=== PATIENT | female | born 1930 | race Caucasian/White ===

== ENCOUNTER 2018-12-04 14:16 | Emergency (ER) | payer MEDICARE, BC ==
--- NOTE | 2018-12-04 14:46 | EDM.PDOC ---
ED HPI GENERAL MEDICAL PROBLEM - General Stated Complaint: FELL AND HIT HER FACE Time Seen by Provider: 12/04/18 14:22 Source of Information: Reports: Patient History Limitations: Reports: No Limitations - History of Present Illness INITIAL COMMENTS - FREE TEXT/NARRATIVE: HPI: This 88 yo female patient reports to the ED from the [facility] due to a ground level fall. The patient had just finished her clinic appointment and was getting ready to leave when she fell and hit her head. The patient does not recall the events of the fall. The patient reports some pain over the right forehead, but denies any additional areas of injury. Primary Survey Airway: open and patient Breathing: regular without additional effort Circulation: no major bleeding noted Deformity: no deformity noted Expose: as appropriate GCS: 15 Secondary Survey HEENT Head: contusion to the right forehead, small laceration to the right upper eyelid with no profuse bleeding Eyes: PERRLA Ears: no obvious trauma, canals open Nose: no deformity, no bleeding, mucosa moist Mouth: no noted trauma Throat: no abnormalities noted Neck: Subtle, normal range of motion no cervical tenderness Chest: lung sounds were clear and equal bilaterally, Heart was RRR, no murmurs, rubs or gallop Abdomen: normoactive bowel sounds, no organomegally, no tenderness on palpation Pelvis: stable Extremities: CMS intact Provider Trauma Notes Arrival Time: 1421 GCS on Arrival: 15 C-collar present on arrival: no GCS at 1 hour: Off spine board: NA Time primary survey: 1423 Time secondary survey: 1425 Time C-collar cleared: NA By: Time removed: GCS on discharge: Onset: Today Duration: Minutes: Location: Reports: Head (right forehead contusion), Face (right upper eyelid laceration) Quality: Reports: Ache, Dull Severity: Moderate Improves with: Reports: None Worsens with: Reports: None Context: Reports: Trauma (Ground level fall) Associated Symptoms: Reports: No Other Symptoms Review of Systems - Review of Systems Review Of Systems: ROS reveals no pertinent complaints other than HPI. ED EXAM, GENERAL - Physical Exam Exam: See Below Exam Limited By: No Limitations General Appearance: Alert, WD/WN, No Apparent Distress Eye Exam: Right Eye: Other (Laceration to right upper eyelid), Bilateral Eye: EOMI, PERRL Ears: Normal External Exam, Normal Canal, Hearing Grossly Normal, Normal TMs Nose: Normal Inspection, Normal Mucosa, No Blood Throat/Mouth: Normal Inspection, Normal Lips, Normal Teeth, Normal Gums, Normal Oropharynx, Normal Voice, No Airway Compromise Head: Other (contusion to the right forehead 4 cm x 3 cm) Neck: Normal Inspection, Supple, Non-Tender Respiratory/Chest: No Respiratory Distress, Lungs Clear, Normal Breath Sounds, No Accessory Muscle Use, Chest Non-Tender Cardiovascular: Irregularly Irregular GI/Abdominal: Normal Bowel Sounds, Soft, Non-Tender, No Organomegaly, No Distention, No Abnormal Bruit, No Mass (Female) Exam: Deferred Rectal (Female) Exam: Deferred Back Exam: Normal Inspection, Full Range of Motion, NT Extremities: Normal Inspection, Normal Range of Motion, Non-Tender, Normal Capillary Refill, No Pedal Edema Neurological: Alert, Oriented, CN II-XII Intact, Normal Cognition Psychiatric: Normal Affect, Normal Mood Skin Exam: Wound/Incision (right upper eyelid) Lymphatic: No Adenopathy Course - Orders/Labs/Meds Orders: Active Orders 24 hr Category Date Time Status Cervical Spine wo Cont [CT] Urgent Exams 12/04/18 14:29 Ordered Head wo Cont [CT] Urgent Exams 12/04/18 14:29 Ordered COMPREHENSIVE METABOLIC PN,CMP [CHEM] Urgent Lab 12/04/18 14:29 Ordered INR,PT,PROTHROMBIN TIME [COAG] Stat Lab 12/04/18 14:29 Ordered UA RFX NERISSA AND CULT IF INDIC [URIN] Urgent Lab 12/04/18 14:29 Ordered Labs: Laboratory Tests 12/04/18 12/04/18 Range/Units 14:25 14:50 WBC 9.2 (5.0-10.0) 10^3/uL RBC 4.22 (4.2-5.4) 10^6/uL Hgb 12.7 (12.0-16.0) g/dL Hct 38.3 (37.0-47.0) % MCV 90.8 (80-100) fL MCH 30.1 (27.0-34.0) pg MCHC 33.2 (33.0-35.0) g/dL Plt Count 248 (150-450) 10^3/uL Neut % (Auto) 62.7 (42.2-75.2) % Lymph % (Auto) 29.4 (20.5-50.1) % [place] % (Auto) 6.7 (2-8) % Eos % (Auto) 0.9 L (1.0-3.0) % Baso % (Auto) 0.3 (0.0-1.0) % Urine Color Yellow (YELLOW) Urine Appearance Clear (CLEAR) Urine pH 7.0 (5.0-9.0) Ur Specific [place] 1.015 (1.005-1.030) Urine Protein Negative (NEGATIVE) Urine Glucose (UA) Negative (NEGATIVE) Urine Ketones Negative (NEGATIVE) Urine Occult Blood Trace-intact H (NEGATIVE) Urine Nitrite Negative (NEGATIVE) Urine Bilirubin Negative (NEGATIVE) Urine Urobilinogen 0.2 (0.2-1.0) mg/dL Ur Leukocyte Esterase Trace H (NEGATIVE) Departure - Departure Time of Disposition: 15:23 Disposition: DC/Tfer to [facility] 02 Condition: Fair Clinical Impression: Fall from ground level, Intracranial bleed - Discharge Information *PRESCRIPTION DRUG MONITORING PROGRAM REVIEWED*: Not Applicable *COPY OF PRESCRIPTION DRUG MONITORING REPORT IN PATIENT EDMUNDO: Not Applicable Instructions: Intracranial Hemorrhage Forms: Interfacility Transfer EMTALA Care Plan Goals: Discussed the patient's history, examination and CT results with Dr. Christensen ([facility] , ED Physician). Dr. Christensen accepted the patient for continued evaluation and management. The patient will be transported by [facility]. - My Orders Last 24 Hours: My Active Orders 12/04/18 14:29 Cervical Spine wo Cont [CT] Urgent Head wo Cont [CT] Urgent COMPREHENSIVE METABOLIC PN,CMP [CHEM] Urgent INR,PT,PROTHROMBIN TIME [COAG] Stat UA RFX NERISSA AND CULT IF INDIC [URIN] Urgent - Assessment/Plan Last 24 Hours: My Active Orders 12/04/18 14:29 Cervical Spine wo Cont [CT] Urgent Head wo Cont [CT] Urgent COMPREHENSIVE METABOLIC PN,CMP [CHEM] Urgent INR,PT,PROTHROMBIN TIME [COAG] Stat UA RFX NERISSA AND CULT IF INDIC [URIN] Urgent
[2018-12-04 15:03] LABS: ANION GAP 14.8; CHLORIDE,CL 97 mmol/L (101-111); SODIUM,NA 135 mmol/L (135-145)
--- NOTE | 2018-12-04 15:09 | CT ---
Clinical history: 88-year-old anticoagulated (Coumadin) female injured in ground-level fall ("bump" forehead, laterally on the right). Scan technique: Volume acquisition data emergency unenhanced CT scan of the head and brain obtained with patient lying supine on the Siemens multi slice scanner [place], [place]. All data archived in the PACS system for storage, reformatting axial/sagittal/coronal planes and study. Interpretation: Abnormal. No intracranial bleed since 09 June 2016 exam. 1. *Small 4.1 mm W x 9.8 mm L x 11 mm AP (tiny) extracerebral/intracranial collection of blood, inferolaterally, at the posterior right parietal-occipital juncture, right cerebral hemisphere (axial scan slice #17; coronal slice #26; and sagittal slice #31) i.e. tiny epidural or subdural bleed. Emergency department provider notified immediately. 2. Uniformly thick bony calvarium without sign of fracture, underlying brain contusion or other epidural/subdural hematoma. 3. Decreased attenuation scattered throughout the periventricular white matter both cerebral hemispheres characteristic of extensive ischemic disease (diabetic? Hypertension? Carotid vascular disease?). 4. No supratentorial or posterior fossa mass lesion. No hydrocephalus. 5. No current signs of intraventricular or subarachnoid blood. 7. Prominent (extracranial) subcutaneous hematoma, anteriorly, frontoparietal region, on the right.
--- NOTE | 2018-12-04 15:22 | CT ---
Clinical history: 88-year-old female on anticoagulants presents with "scalp hematoma and tiny intracranial bleed" sustained during ground-level fall. Rule out cervical fracture. Scan technique: Volume acquisition of data emergency unenhanced CT scan of the cervical spine obtained while the patient was lying supine on the Siemens multi slice scanner [place], [place]. All data archived in the PACS system for storage, reformatting axial/sagittal/coronal planes and study. Interpretation: 1. Evidence of old trauma i.e. callus formation around the odontoid process of C2 and the (atlas), anterior arch C1. 2. Reversal of usual cervical lordosis presumably associated with chronic multilevel cervical disc disease i.e. abnormal narrowing with some complete loss of the intervertebral disc spaces C3-C4 C4-C5 C5-6 and C6-C7 levels.. 3. Hypertrophic marginal and spondylosis characteristic of chronic cervical disc degeneration. 4. Subtle anterolisthesis of both the C2 and C3 vertebral bodies but no prevertebral soft tissue swelling, cervical fracture or jumped locked facets (calcifications spinal laminar ligament posteriorly). 5. No cervical rib anomalies. Lung apices clear bilaterally. Mild cervical thoracic scoliosis and T1-2 disc degeneration. 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 No acute fracture or dislocation cervical spine.
== END 2018-12-04 15:46 ==
LOC: DL.ED 14:16
DX: S06.349A Traumatic hemorrhage of right cerebrum with loss of consciousness of unspecified duration, initial encounter (principal); S01.111A Laceration without foreign body of right eyelid and periocular area, initial encounter; W18.30XA Fall on same level, unspecified, initial encounter
CPT/HCPCS: 36415; 70450; 72125; 80053; 81001; 85025; 85610; 87086; 99285-25